=== PATIENT | female | born 1960 | race Caucasian/White ===

== ENCOUNTER 2021-10-25 02:50 | Inpatient (IN) ==
[2021-10-25 03:52] LABS: Basophils # 0.1 K/mcL (0.0-0.2); Basophils % 1.4 %; Eosinophils # 0.7 K/mcL (0.0-0.6); Eosinophils % 8.9 %; Hematocrit 43.6 % (35.3-44.9); Hemoglobin 14.5 g/dL (11.5-15.4); Immature Granulocytes % 0.3 % (0-4); Lymphocytes # 1.3 K/mcL (0.6-4.6); Lymphocytes % 17.4 %; Mean Corpuscular HGB Conc 33.3 g/dL (31.6-35.5); Mean Corpuscular Hemoglobin 31.3 pg (28.0-33.3); Mean Corpuscular Volume 94.2 fL (83.0-100.0); Monocytes # 0.5 K/mcL (0.0-1.3); Monocytes % 6.9 %; Neutrophils # 4.7 K/mcL (1.6-8.9); Platelet Count 305 K/mcL (140-400); Red Blood Count 4.63 M/mcL (3.82-4.97); Red Cell Distribution Width 12.8 % (11.5-14.5); Segmented Neutrophils % 65.1 %; White Blood Count 7.3 K/mcL (4.3-11.1)
[2021-10-25 04:06] LABS: VBG HCO3 24 mEq/L (21-27); VBG PCO2 38 mmHg (41-51); VBG PO2 47 mmHg (25-50)
[2021-10-25 04:06] LABS: Alanine Aminotransferase 13 Units/L (7-52); Albumin 4.4 g/dL (3.5-5.7); Albumin/Globulin Ratio 1.9 (1.1-2.2); Alkaline Phosphatase 71 Units/L (34-104); Aspartate Amino Transferase 18 Units/L (13-39); BUN/Creatinine Ratio 18 (6-26); Bilirubin,Total 0.4 mg/dL (0.3-1.0); Blood Urea Nitrogen 12 mg/dL (8-23); Calcium 9.8 mg/dL (8.6-10.3); Carbon Dioxide 26 mEq/L (23-29); Chloride 106 mEq/L (98-107); Globulin 2.3 g/dL (2.4-3.5); Glucose 125 mg/dL (70-105); Osmolality,Calculated 289 (280-300); Sodium 139 mEq/L (136-145); Total Protein 6.7 g/dL (6.4-8.9); eGFR For African Americans > 60 (> 60); eGFR For Non-African Americans > 60 (> 60)
[2021-10-25 04:46] LABS: ABG Base Excess -1 mEq/L (-2 to 3); ABG HCO3 23 mEq/L (21-27); ABG Oxygen Saturation 94 % (95-98); ABG PCO2 34 mmHg (35-45); ABG PH 7.43 pH Units (7.32-7.45); ABG PO2 69 mmHg (85-104); ABG TCO2 24 mEq/L (20-26)
[2021-10-25] MEDS ORDERED: Naloxone 0.4 MG/ML INJ IVP PRN ×2 (06:05→06:07)
[2021-10-25] MEDS ORDERED: Saliva Stimulant 44.3ml BOTTLE PO PRN (06:07)
[2021-10-25] MEDS: Artificial Tears SOLN 15 ML BOTTLE BOTH EYES SCH ×5 (07:00→20:23)
[2021-10-25] MEDS: Budesonide/Formoterol 160/4.5 1 PUFF INH IH SCH ×2 (07:39→20:08)
[2021-10-25] MEDS: Ipratropium/Albuterol Neb 3 ML IH SCH ×4 (07:41→20:08)
[2021-10-25] MEDS: Multivit/Ca/Min/Fe/FA 1 TAB TABLET PO SCH (08:37)
[2021-10-25] MEDS: Chlorhexidine Rinse 15 ML MOUTHWASH MM SCH ×2 (08:43→20:24)
[2021-10-25] MEDS: Saline Nasal Spray 44 ML BOTTLE NS SCH ×4 (08:43→20:23)
[2021-10-25] MEDS ORDERED: predniSONE 20 MG TABLET PO SCH (09:00)
[2021-10-25] MEDS ORDERED: Perflutren Lipid Microsphere 1.3 ML in 0.9 % Sodium Chloride 8.7 ML IVP PRN (13:19)
[2021-10-25] MEDS: levoFLOXacin 750 MG TABLET PO SCH (14:45)
[2021-10-25] MEDS: MethylPREDNISolone 40 MG/ML VIAL IVP SCH (17:09)
[2021-10-25] MEDS: GuaiFENesin/Codeine Oral Soln 5 ML UDC PO PRN (17:17)
[2021-10-25 19:31] LABS: Adenovirus Not Detected (Not Detect); Bordetella Pertussis Not Detected (Not Detect); Chlamydophila pneumoniae Not Detected (Not Detect); Coronavirus 229E Not Detected (Not Detect); Coronavirus HKU1 Not Detected (Not Detect); Coronavirus NL63 Not Detected (Not Detect); Coronavirus OC43 Not Detected (Not Detect); Human Metapneumovirus Not Detected (Not Detect); Human Rhinovirus/Enterovirus Not Detected (Not Detect); Influenza A Subtype 2009 H1 Not Detected (Not Detect); Influenza B Not Detected (Not Detect); Mycoplasma pneumoniae Not Detected (Not Detect); Parainfluenza Virus 1 Not Detected (Not Detect); Parainfluenza Virus 2 Not Detected (Not Detect); Parainfluenza Virus 3 Not Detected (Not Detect); Parainfluenza Virus 4 Not Detected (Not Detect); Respiratory Syncytial Virus Not Detected (Not Detect); SARS-CoV-2 Not Detected (Not Detect)
[2021-10-26] MEDS: Ipratropium/Albuterol Neb 3 ML IH SCH ×6 (00:20→20:45)
[2021-10-26] MEDS: MethylPREDNISolone 40 MG/ML VIAL IVP SCH ×3 (01:00→16:31)
[2021-10-26] MEDS: Artificial Tears SOLN 15 ML BOTTLE BOTH EYES SCH ×6 (01:09→21:37)
[2021-10-26 04:29] LABS: Hematocrit 40.2 % (35.3-44.9); Hemoglobin 13.3 g/dL (11.5-15.4); Mean Corpuscular HGB Conc 33.1 g/dL (31.6-35.5); Mean Corpuscular Hemoglobin 31.9 pg (28.0-33.3); Mean Corpuscular Volume 96.4 fL (83.0-100.0); Mean Platelet Volume 9.1 fL (9.4-12.4); Platelet Count 295 K/mcL (140-400); Red Blood Count 4.17 M/mcL (3.82-4.97); Red Cell Distribution Width 13.1 % (11.5-14.5); White Blood Count 13.4 K/mcL (4.3-11.1)
[2021-10-26 04:45] LABS: Magnesium 2.2 mg/dL (1.6-2.6); Phosphorous 3.7 mg/dL (2.7-4.5)
[2021-10-26 05:21] LABS: Alanine Aminotransferase 11 Units/L (7-52); Albumin 4.1 g/dL (3.5-5.7); Albumin/Globulin Ratio 1.9 (1.1-2.2); Alkaline Phosphatase 63 Units/L (34-104); Aspartate Amino Transferase 14 Units/L (13-39); BUN/Creatinine Ratio 16 (6-26); Bilirubin,Total 0.3 mg/dL (0.3-1.0); Blood Urea Nitrogen 11 mg/dL (8-23); Calcium 9.9 mg/dL (8.6-10.3); Carbon Dioxide 24 mEq/L (23-29); Chloride 107 mEq/L (98-107); Globulin 2.2 g/dL (2.4-3.5); Glucose 152 mg/dL (70-105); Osmolality,Calculated 290 (280-300); Potassium 4.4 mEq/L (3.5-5.1); Sodium 139 mEq/L (136-145); Total Protein 6.3 g/dL (6.4-8.9); eGFR For African Americans > 60 (> 60); eGFR For Non-African Americans > 60 (> 60)
[2021-10-26] MEDS: *HR* Enoxaparin 40 MG/0.4 ML SYRINGE SQ SCH (05:41)
[2021-10-26] MEDS: Budesonide/Formoterol 160/4.5 1 PUFF INH IH SCH ×2 (08:07→20:45)
[2021-10-26] MEDS: levoFLOXacin 750 MG TABLET PO SCH (08:41)
[2021-10-26] MEDS: Chlorhexidine Rinse 15 ML MOUTHWASH MM SCH ×2 (08:41→21:36)
[2021-10-26] MEDS: Multivit/Ca/Min/Fe/FA 1 TAB TABLET PO SCH (08:41)
[2021-10-26] MEDS: Saline Nasal Spray 44 ML BOTTLE NS SCH ×4 (08:43→21:36)
[2021-10-26] MEDS: GuaiFENesin/Codeine Oral Soln 5 ML UDC PO PRN (21:36)
[2021-10-27] MEDS: MethylPREDNISolone 40 MG/ML VIAL IVP SCH ×3 (00:30→17:52)
[2021-10-27] MEDS: Latanoprost 2.5 ML BOTTLE BOTH EYES SCH ×2 (00:30→21:09)
[2021-10-27] MEDS: Artificial Tears SOLN 15 ML BOTTLE BOTH EYES SCH ×6 (00:37→21:09)
[2021-10-27] MEDS: Ipratropium/Albuterol Neb 3 ML IH SCH ×6 (02:33→20:12)
[2021-10-27 05:05] LABS: Basophils % 0.1 %; Hematocrit 40.1 % (35.3-44.9); Hemoglobin 13.1 g/dL (11.5-15.4); Immature Granulocytes % 0.6 % (0-4); Lymphocytes # 0.5 K/mcL (0.6-4.6); Lymphocytes % 4.2 %; Mean Corpuscular HGB Conc 32.7 g/dL (31.6-35.5); Mean Corpuscular Hemoglobin 31.8 pg (28.0-33.3); Mean Corpuscular Volume 97.3 fL (83.0-100.0); Mean Platelet Volume 9.5 fL (9.4-12.4); Monocytes # 0.3 K/mcL (0.0-1.3); Monocytes % 2.6 %; Neutrophils # 10.8 K/mcL (1.6-8.9); Platelet Count 298 K/mcL (140-400); Red Blood Count 4.12 M/mcL (3.82-4.97); Red Cell Distribution Width 13.2 % (11.5-14.5); Segmented Neutrophils % 92.5 %; White Blood Count 11.7 K/mcL (4.3-11.1)
[2021-10-27 05:20] LABS: BUN/Creatinine Ratio 22 (6-26); Blood Urea Nitrogen 16 mg/dL (8-23); Calcium 9.9 mg/dL (8.6-10.3); Carbon Dioxide 28 mEq/L (23-29); Chloride 106 mEq/L (98-107); Glucose 131 mg/dL (70-105); Osmolality,Calculated 293 (280-300); Potassium 4.9 mEq/L (3.5-5.1); Sodium 140 mEq/L (136-145); eGFR For African Americans > 60 (> 60); eGFR For Non-African Americans > 60 (> 60)
[2021-10-27] MEDS: *HR* Enoxaparin 40 MG/0.4 ML SYRINGE SQ SCH (06:30)
[2021-10-27] MEDS: Saline Nasal Spray 44 ML BOTTLE NS SCH ×4 (07:48→21:09)
[2021-10-27] MEDS: GuaiFENesin/Codeine Oral Soln 5 ML UDC PO PRN ×2 (07:49→21:07)
[2021-10-27] MEDS: Acetaminophen 325 MG TABLET PO PRN ×2 (07:49→21:06)
[2021-10-27] MEDS: Chlorhexidine Rinse 15 ML MOUTHWASH MM SCH ×2 (07:50→21:06)
[2021-10-27] MEDS: levoFLOXacin 750 MG TABLET PO SCH (07:50)
[2021-10-27] MEDS: Multivit/Ca/Min/Fe/FA 1 TAB TABLET PO SCH (07:50)
[2021-10-27] MEDS: Budesonide/Formoterol 160/4.5 1 PUFF INH IH SCH ×2 (08:02→20:12)
[2021-10-28] MEDS: Ipratropium/Albuterol Neb 3 ML IH SCH ×6 (00:18→20:44)
[2021-10-28] MEDS: Artificial Tears SOLN 15 ML BOTTLE BOTH EYES SCH ×6 (04:08→21:23)
[2021-10-28] MEDS: GuaiFENesin/Codeine Oral Soln 5 ML UDC PO PRN ×2 (05:41→22:19)
[2021-10-28] MEDS: MethylPREDNISolone 40 MG/ML VIAL IVP SCH ×2 (05:41→17:08)
[2021-10-28] MEDS: *HR* Enoxaparin 40 MG/0.4 ML SYRINGE SQ SCH (05:41)
[2021-10-28] MEDS: Budesonide/Formoterol 160/4.5 1 PUFF INH IH SCH ×2 (07:35→20:44)
[2021-10-28] MEDS: Saline Nasal Spray 44 ML BOTTLE NS SCH ×4 (08:42→21:23)
[2021-10-28] MEDS: Chlorhexidine Rinse 15 ML MOUTHWASH MM SCH ×2 (08:43→21:23)
[2021-10-28] MEDS: Multivit/Ca/Min/Fe/FA 1 TAB TABLET PO SCH (08:43)
[2021-10-28] MEDS: levoFLOXacin 750 MG TABLET PO SCH (08:43)
[2021-10-28] MEDS: Latanoprost 2.5 ML BOTTLE BOTH EYES SCH (21:21)
[2021-10-29] MEDS: Ipratropium/Albuterol Neb 3 ML IH SCH ×4 (00:06→11:15)
[2021-10-29] MEDS: Artificial Tears SOLN 15 ML BOTTLE BOTH EYES SCH ×3 (04:46→11:16)
[2021-10-29] MEDS: MethylPREDNISolone 40 MG/ML VIAL IVP SCH (05:13)
[2021-10-29] MEDS: *HR* Enoxaparin 40 MG/0.4 ML SYRINGE SQ SCH (05:14)
[2021-10-29] MEDS: Budesonide/Formoterol 160/4.5 1 PUFF INH IH SCH (07:39)
[2021-10-29] MEDS: levoFLOXacin 750 MG TABLET PO SCH (09:43)
[2021-10-29] MEDS: Saline Nasal Spray 44 ML BOTTLE NS SCH (09:43)
[2021-10-29] MEDS: Multivit/Ca/Min/Fe/FA 1 TAB TABLET PO SCH (09:43)
[2021-10-29] MEDS: Chlorhexidine Rinse 15 ML MOUTHWASH MM SCH (09:43)
[2021-10-29 11:46] VITALS: BP 106/71; PULSE 71; RESP 18; TEMP 98.1; O2SAT 93
== END 2021-10-29 14:34 | disposition home or self-care (01) ==
LOC: EMEROOGRE 02:50 → INPGRE 02:50
PROVIDERS: ADMIT Internal Medicine; ATTEND Family Medicine